=== PATIENT | female | born 1970 ===

== ENCOUNTER 2016-11-16 10:34 | Emergency (ER) | payer OTHER ==
[2016-11-16 10:39] VITALS: BP 133/82; PULSE 81; RESP 16; TEMP 98.3
[2016-11-16 10:41] VITALS: O2SAT 98
--- NOTE | 2016-11-16 10:58 | ED PDOC ---
HPI: Back Time Seen by Provider: 11/16/16 10:56 Chief Complaint (Nursing): Back Pain Chief Complaint (Provider): back pain History Per: Patient (46 y/o female here for evaluation of back pain ongoing x 5 months worse with movement and lifting objects. Patient notes she fell prior to onset and is unsure if this is cause of pain. Denies any urinary or rectal incontinence. Has taken motrin intermittently for pain with relief temporarily. ) Past Medical History Reviewed: Historical Data, Nursing Documentation, Vital Signs Vital Signs: Last Vital Signs Temp 98.3 F 11/16/16 10:38 Pulse 81 11/16/16 10:38 Resp 16 11/16/16 10:38 BP 133/82 11/16/16 10:38 Pulse Ox 98 11/16/16 10:38 - Family History Family History: States: No Known Family Hx - Home Medications Home Medications: Ambulatory Orders Medication Instructions Recorded Naproxen 1 tab PO BID PRN #14 tab 11/16/16 diaZEpam [Valium] 5 mg PO Q6 PRN #3 tab 11/16/16 - Allergies Allergies/Adverse Reactions: Allergies Allergy/AdvReac Type Severity Reaction Status Date / Time No Known Allergies Allergy Verified 11/16/16 10:38 Review of Systems ROS Statement: Except As Marked, All Systems Reviewed And Found Negative Musculoskeletal: Positive for: Back Pain Physical Exam - Reviewed Nursing Documentation Reviewed: Yes Vital Signs Reviewed: Yes - Physical Exam Appears: Positive for: Well, Non-toxic, No Acute Distress Head Exam: Positive for: ATRAUMATIC, NORMAL INSPECTION, NORMOCEPHALIC Skin: Positive for: Normal Color, Warm, DRY Eye Exam: Positive for: EOMI, Normal appearance, PERRL ENT: Positive for: Normal ENT Inspection Neck: Positive for: Normal, Painless ROM Cardiovascular/Chest: Positive for: Regular Rate, Rhythm Respiratory: Positive for: CNT, Normal Breath Sounds Gastrointestinal/Abdominal: Positive for: Normal Exam, Bowel Sounds, Soft Back: Positive for: Normal Inspection, Other (lower lumber tenderness noted No point tenderness.) Extremity: Positive for: Normal ROM Neurologic/Psych: Positive for: Alert, Oriented - Laboratory Results Urine POC: Negative - ECG O2 Sat by Pulse Oximetry: 98 - Progress ED Course And Treament: Xry L spine: no bony abnormality Naproxen 500 mg x 1 dose Disposition - Clinical Impression Clinical Impression: Back strain - Patient ED Disposition Is Patient to be Admitted: No - Disposition Referrals: [facility] [place] [Outside] Disposition: Routine/Home Disposition Time: 11:40 Condition: FAIR Prescriptions: diaZEpam [Valium] 5 mg PO Q6 PRN #3 tab PRN Reason: Muscle Spasm Naproxen 1 tab PO BID PRN #14 tab PRN Reason: Pain, Moderate (4-7) Instructions: Acute Low Back Pain (ED) Forms: [facility] (Khmer), [facility] ED School/Work Excuse Print Language: MALAGASY
--- NOTE | 2016-11-16 11:52 | RAD ---
PROCEDURE: Radiographs of the Lumbar Spine. HISTORY: Evaluate for back pain x 5 months after fall COMPARISON: No prior. FINDINGS: BONES: There is grade 1 anterior listhesis of L5 on S1. Lumbar lordosis is maintained. Vertebral bodies are normal in height. There is no acute fracture. Bone mineralization is normal. DISC SPACES: There is mild degenerative disc disease at L5-S1 with reduced disc height and mild facet arthropathy. OTHER FINDINGS: There are no pathologic soft tissue calcifications. Both sacroiliac joints are normal IMPRESSION: No acute fracture. Grade 1 anterior listhesis of L5 on S1. Dedicated oblique radiographs are recommended to exclude spondylolysis.
== END 2016-11-16 11:46 | disposition home or self-care (01) ==
LOC: H.ER 10:34
DX: S39.012A Strain of muscle, fascia and tendon of lower back, initial encounter (principal); W19.XXXA Unspecified fall, initial encounter; Y92.89 Other specified places as the place of occurrence of the external cause

== ENCOUNTER 2017-10-24 17:13 | Emergency (ER) | payer OTHER ==
[2017-10-24 17:31] VITALS: BP 117/62; PULSE 68; RESP 16; TEMP 99; O2SAT 97
--- NOTE | 2017-10-24 17:56 | ED PDOC ---
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 Patient also complains of ongoing lower back pain and left shoulder pain x 1 year. Patient was seen in this ED in November 2016 for her back pain, but she never filled her prescriptions. She denies any recent trauma. PMD: none Past Medical History Reviewed: Historical Data, Nursing Documentation, Vital Signs Vital Signs: Last Vital Signs Temp 99 F 10/24/17 17:27 Pulse 68 10/24/17 17:27 Resp 16 10/24/17 17:27 BP 117/62 10/24/17 17:27 Pulse Ox 97 10/24/17 18:00 - Medical History PMH: No Chronic Diseases - Surgical History Surgical History: No Surg Hx - Family History Family History: States: No Known Family Hx, Unknown Family Hx - Living Arrangements Living Arrangements: With Family - Social History Current smoker - smoking cessation education provided: No Alcohol: None Drugs: Denies - Home Medications Home Medications: Ambulatory Orders Medication Instructions Recorded Naproxen 1 tab PO BID PRN #14 tab 11/16/16 diaZEpam [Valium] 5 mg PO Q6 PRN #3 tab 11/16/16 - Allergies Allergies/Adverse Reactions: Allergies Allergy/AdvReac Type Severity Reaction Status Date / Time No Known Allergies Allergy Verified 10/24/17 17:27 Review of Systems ROS Statement: Except As Marked, All Systems Reviewed And Found Negative Constitutional: Negative for: Fever, Chills Cardiovascular: Negative for: Chest Pain Musculoskeletal: Positive for: Shoulder Pain, Back Pain Skin: Positive for: Other (skin spots) Physical Exam - Reviewed Nursing Documentation Reviewed: Yes Vital Signs Reviewed: Yes - Physical Exam Appears: Positive for: Well, Non-toxic, No Acute Distress Head Exam: Positive for: ATRAUMATIC, NORMAL INSPECTION, NORMOCEPHALIC Skin: Positive for: Normal Color, Rash (Scattered hyperpigmented raised lesions noted to entire body, appearance consistent with freckles) Eye Exam: Positive for: Normal appearance Neck: Positive for: Normal Cardiovascular/Chest: Positive for: Regular Rate, Rhythm Respiratory: Positive for: Normal Breath Sounds Back: Negative for: L CVA Tenderness, R CVA Tenderness, Vertebral Tenderness Extremity: Positive for: Normal ROM Neurologic/Psych: Positive for: Alert, Oriented - ECG O2 Sat by Pulse Oximetry: 97 (RA) Pulse Ox Interpretation: Normal Medical Decision Making Medical Decision Makin46 y/o female with multiple complaints Patient was advised that skin lesions are benign appearing and no acute medical intervention indicated at this time. Patient was seen November 2016 for back pain and was prescribed Naprosyn and Valium at that time. Patient has not filled these prescriptions as of yet. She was advised to fill medications and take as directed as needed for pain. Patient referred to clinic for follow up. Scribe Attestation: Documented by Inez Medley, acting as a scribe for Chloe Alexis PA-C. Provider Scribe Attestation: All medical record entries made by the Scribe were at my direction and personally dictated by me. I have reviewed the chart and agree that the record accurately reflects my personal performance of the history, physical exam, medical decision making, and the department course for this patient. I have also personally directed, reviewed, and agree with the discharge instructions and disposition. Disposition - Clinical Impression Clinical Impression: Freckles, Back pain, Shoulder pain - Patient ED Disposition Is Patient to be Admitted: No Counseled Patient/Family Regarding: Need For Followup - Disposition Referrals: [facility] [Outside] Disposition: Routine/Home Disposition Time: 18:01 Condition: STABLE Additional Instructions: FOLLOW UP WITH CLINIC Instructions: Moles on the Skin, Chronic Pain Forms: [employer] (Georgian) Print Language: LATVIAN
== END 2017-10-24 18:17 | disposition home or self-care (01) ==
LOC: H.ER 17:13
DX: M54.9 Dorsalgia, unspecified (principal); M25.512 Pain in left shoulder; L81.2 Freckles